=== PATIENT | female | born 1955 | race Caucasian/White ===

== ENCOUNTER 2017-05-08 06:24 | Day surgery (SDC) | payer OTHER ==
[~2017-05-08] VITALS: Ht 160 cm; Wt 105.2 kg
--- NOTE | ~2017-05-08 | OP ---
Record Of Operation [facility] [address] [place]. [address] NAME: AKSHAT BERRIOS : 55 [place] [facility] [place] [id number] AGE: 62 ADM/REG DATE : 05/08/17 MR#: [id number] REPORT SERV DATE: 05/09/17 DICTATED BY: CEZAR BYRNE JR. DATE: 05/08/17 REPORT STATUS : Draft TRANSCRIBED BY: NIR DATE: 05/08/17 DATE OF PROCEDURE: 05/08/2017 PREOPERATIVE DIAGNOSES: Right lower lobe non-small cell lung cancer, depression, peripheral arterial disease, hiatal hernia, obesity, chronic obstructive pulmonary disease, and sleep apnea. POSTOPERATIVE DIAGNOSIS: Locally advanced non-small cell lung cancer, but no evidence of level 2 lymph node involvement. NAME OF OPERATION: Diagnostic and therapeutic bronchoscopy, endobronchial ultrasound with multiple fine-needle aspirations, kassi stations 4R, 7, 10R, 11R. RESIDENT SURGEON: Dr. De La Cruz. ANESTHESIOLOGIST: Domenico Thrasher M.D. FINDINGS: The patient was noted to have a locally advanced tumor extending into the right hilum of the right lower lobe. There was occlusion of the superior segment of the right lower lobe bronchus. The level 2 lymph nodes in the 4R and 7 location appeared normal in architecture with some hypervascularity suggestive of inflammation. The 10R lymph node was also the same. It is difficult to tell whether the tumor was extending into the nodes in the hilum or whether there was actual metastasis to the 11R lymph nodes. The tumor was obviously diagnosed locally, but we could not find the tumor cells in the distant lymph nodes. This certainly makes the PET-CT scan findings of the level 2 lymph nodes more suspicious for inflammation secondary to her pneumonia at that time the film was taken. DETAILS OF OPERATION: After adequate general anesthesia, the patient was intubated with an LMA. Diagnostic and therapeutic bronchoscopy was performed noting no endobronchial masses or lesions. The superior segment of the right lower lobe was occluded. There was no other endobronchial lesion seen. Endobronchial ultrasound was then performed noting level 2 lymph nodes to have more benign architecture. Fine-needle aspirations for 4R, 7, and 10R showed adequate lymphocytes with no evidence of tumor cells. Fine-needle aspirations of the hilar mass and/or 11R lymph nodes were positive for non-small cell lung cancer. Additional material sent for cell block. Final pathology is pending. We will await final results before assessing resectability. JULY/NIR Cezar Byrne Jr., M.D. / [id number] Record Of Operation [address] [address] NAME: AKSHAT BERRIOS : 55 [place] [facility] [place] [id number] AGE: 62 ADM/REG DATE : 05/08/17 MR#: [id number] REPORT SERV DATE: 05/09/17 DICTATED BY: CEZAR BYRNE JR. DATE: 05/08/17 REPORT STATUS : Draft TRANSCRIBED BY: NIR DATE: 05/08/17 CC: Francisca Estrada Jr., JUAN Naseer Ahmad Humayun, M.D. HOSAM SAAD-NAGUIB, MD LIZA STAPLEFORD, MD
[~2017-05-08 06:24] MED LIST: A; CLARIT10 PO; COMBIVENT RESPIM4 GM INH; L40 PO; NASACORTAQ NAS; POTASSIUM CHLORIDE PO; REMERON30 MG PO; SYMBICORT 80/4.1 INH INH; WELL100 PO; ZOCOR20 PO
[2017-05-08 06:36] LABS: HEMATOCRIT 41.9 % (36.0-48.0); HEMOGLOBIN 13.7 g/dL (12.0-16.0)
[2017-05-08 06:52] LABS: BUN (BLOOD UREA NITROGEN) 8 MG/DL (6-23); CALCIUM, SERUM 9.7 MG/DL (8.5-10.4); CHLORIDE, SERUM 104 MMOL/L (96-112); CO2 (CARBON DIOXIDE) 30 MMOL/L (24-34); CREATININE 0.93 MG/DL (0.55-1.02); GFR AFRICAN AMERICAN 76 ML/MIN (>=60); GFR NON AFRICAN AMERICAN 66 ML/MIN (>=60); GLUCOSE, SERUM 116 MG/DL (60-99); POTASSIUM, SERUM 4.3 MMOL/L (3.5-5.3); SODIUM, SERUM 141 MMOL/L (135-148)
== END 2017-05-08 23:59 | disposition home or self-care (01) ==
LOC: DMU 06:24
PROVIDERS: Anesthesiology; Thoracic Surgery (Cardiothoracic Vascular Surgery)
PROC: 07974ZX Drainage of Thorax Lymphatic, Percutaneous Endoscopic Approach, Diagnostic (ICD-10-PCS; principal; 2017-05-08 08:00)
DX: C77.1 Secondary and unspecified malignant neoplasm of intrathoracic lymph nodes (principal); C34.31 Malignant neoplasm of lower lobe, right bronchus or lung; F32.9 Major depressive disorder, single episode, unspecified; I73.9 Peripheral vascular disease, unspecified; K44.9 Diaphragmatic hernia without obstruction or gangrene; E66.9 Obesity, unspecified; J44.9 Chronic obstructive pulmonary disease, unspecified; G47.30 Sleep apnea, unspecified; E78.2 Mixed hyperlipidemia; Z87.891 Personal history of nicotine dependence; Z99.81 Dependence on supplemental oxygen; Z79.899 Other long term (current) drug therapy; Z88.5 Allergy status to narcotic agent; Z88.1 Allergy status to other antibiotic agents; Z91.040 Latex allergy status; Z88.4 Allergy status to anesthetic agent; Z88.8 Allergy status to other drugs, medicaments and biological substances; Z90.711 Acquired absence of uterus with remaining cervical stump; Z90.49 Acquired absence of other specified parts of digestive tract; Z98.890 Other specified postprocedural states
CPT/HCPCS: 80048; 85014; 85018; 88172; 88173; 88305; 93005; A9270-GY; C1725; J1170; J2250; J2370; J3010